=== PATIENT | male | born 1960 | race Caucasian/White ===

== ENCOUNTER 2019-03-19 15:03 | Emergency (ER) | payer MEDICAID, OTHER ==
[~2019-03-19] VITALS: Ht 167.6 cm; Wt 52.0 kg
--- NOTE | 2019-03-19 15:24 | NUR ---
POC [id number]
[2019-03-19 15:26] LABS: BASOPHILS # (AUTO) 0.05 x10^3/uL (0-0.1); BASOPHILS % (AUTO) 1 % (0-1); EOSINOPHILS # (AUTO) 0.19 x10^3/uL (0-0.4); EOSINOPHILS % (AUTO) 2 % (1-7); LYMPHOCYTES # (AUTO) 1.88 x10^3/uL (1-3.4); LYMPHOCYTES % (AUTO) 23 % (22-44); MD NO; MEAN CORPUSCULAR HEMOGLOBIN 30.8 pg (27.5-34.5); MEAN CORPUSCULAR HGB CONC 32.4 g/dL (33.2-36.2); MEAN PLATELET VOLUME 7.4 fL (7.4-10.4); MONOCYTES # (AUTO) 0.93 x10^3/uL (0.2-0.8); MONOCYTES % (AUTO) 12 % (2-9); NEUTROPHILS # (AUTO) 5.01 x10^3/uL (1.8-6.8); NEUTROPHILS % (AUTO) 62 % (42-75); PLATELET COUNT 469 x10^3/uL (130-400); RED BLOOD COUNT 4.38 x10^6/uL (4.38-5.82); RED CELL DISTRIBUTION WIDTH 19.5 % (9.4-14.8)
[2019-03-19 15:33] LABS: ALBUMIN 3.1 g/dL (3.4-5.0); ANION GAP 8 mmol/L (5-15); CALCIUM 9.1 mg/dL (8.5-10.1); CHLORIDE 98 mmol/L (98-107); CREATININE 1.45 mg/dL (0.7-1.3)
--- NOTE | 2019-03-19 15:54 | NUR ---
pt provided with meal tray. pt handed phone so he could talk with sister. pt denies further needs at this time
--- NOTE | 2019-03-19 17:16 | NUR ---
poc [id number]. dr garcia aware. pt ate approx 75% of meal. a&ox4, verbalizes understanding of poc. vss
[2019-03-19] MEDS ORDERED: OXYcodone/APAP 5/325MG TABLET ONE (17:20)
[2019-03-19 17:25] VITALS: BP 98/42
[2019-03-19] MEDS ORDERED: OXYcodone/APAP 5/325MG TABLET PO ONE (17:30)
--- NOTE | 2019-03-19 17:37 | NUR ---
called elisa simon) [phone]. will be meet pt in lobby in 10 min for ride home
== END 2019-03-19 17:50 | disposition home or self-care (01) ==
LOC: ED 17:44
DX: E10.641 Type 1 diabetes mellitus with hypoglycemia with coma (principal); I10 Essential (primary) hypertension; Z79.4 Long term (current) use of insulin
CPT/HCPCS: 36415; 80048; 82040; 85025; 99283